=== PATIENT | female | born 1950 | race Caucasian/White ===

== ENCOUNTER → 2017-03-06 | Outpatient (CLI) | payer BC ==
--- NOTE | ~2017-03-06 | ESTC ---
Cardiac Perfusion Imaging Demographics Patient Name JENNY Benavides Gender Female Patient Number [id number] Race Visit Number [id number] Ethnicity Corporate ID Room Number Accession Number [id number] Height 67 inches Date of 1950 Weight 280 pounds MD Lynette Lomax Interpreting Leonides Multani Date of study 03/06/2017 Physician Supervising /EYALP Leonides Multani NM Technologist Annemarie Chacon MD Ordering Physician Leonides Multani Stress MD visitor services technician Stress ECG Reading Leonides Multani Nurse Mell Hooper Physician meter attendant Procedure Type: Nuclear Stress Test:Cardiolite Stress Test Procedure Start time: 03/06/2017 09:45 Indications: Shortness of breath. Risk Factors The patient risk factors include:obesity, hypertension and family history of premature CAD. Conclusions Summary Lexiscan cardiolite with no EKG changes of ischemia. Small,distal anterior and apical moderate fixed defect most consistent with soft tissue attenuation. LVEF:80% Normal WM. Stress Protocols Resting ECG RSR. Pre-stress physical exam: Un changed. Predicted HR: 155 bpm ECG Findings No ECG changes suggestive of ischemia. Arrhythmias No rhythm abnormality. Symptoms SOB. Abdominal pain. Stress Interpretation Lexiscan cardiolite with normal hemodynamic response. SOB and abdominal pain. No EKG changes of ischemia. No arrythmias. Imaging Results Applied corrections - Motion correction applied High risk findings Summed scores - Summed stress score: 13 - Summed rest score: 17 - Summed difference score: -4 Stress ejection Ejection fraction:80 % EDV :96 ml ESV :19 ml Stroke volume :77 ml LV mass :112 gr LV size:Normal Normal LV function Imaging Protocols Rest Stress Isotope:Tc99m Sestamibi IV Isotope: Tc99m Sestamibi IV Isotope dose:16.2 mCi Isotope dose:49.7 mCi Date:03/06/2017 07:55 Date:03/06/2017 10:06 Technique: SPECT Technique: Gated Supine SPECT Supine Scan Time:45-60 minutes post Scan Time:45-60 minutes post injection injection Procedure Medications - Regadenoson (Lexiscan) 0.4 mg IV over 10-15 sec. I.V. 0.4 mg. Medical History Admission Data Admission date: 03/06/2017 Admission Time: 07:35 Hospital Status: Outpatient. Signatures dtt: Nerissa Coyle dtd: 03/06/17 0945 Physician Self Edit
[2017-03-06 08:22] LABS: ANION GAP 11.2 (10.0-19.0); MAGNESIUM 2.1 mg/dL (1.8-2.6); POTASSIUM 4.2 mMol/L (3.7-5.1)
== END | disposition disaster alternative care site (69) ==
LOC: GRAD 07:00 → GLAB 07:00 → GRAD 07:35
PROVIDERS: Internal Medicine Interventional Cardiology
DX: R06.02 Shortness of breath (principal); E66.9 Obesity, unspecified; I10 Essential (primary) hypertension; R10.9 Unspecified abdominal pain; Z82.49 Family history of ischemic heart disease and other diseases of the circulatory system
CPT/HCPCS: A9500; J2785